=== PATIENT | female | born 1985 | race Caucasian/White ===

== ENCOUNTER 2018-05-29 17:09 | Emergency (ER) | payer OTHER ==
[2018-05-29 22:59] LABS: Urine Appearance Cloudy; Urine Blood 1+ (Negative); Urine Color Yellow; Urine Ketones Trace (Negative); Urine Protein Negative (Negative); Urine Red Blood Cell 1+(3-5/hpf) (Absent); Urine Specific Gravity 1.015 (1.010-1.030); Urine Urobilinogen Negative (Negative); Urine White Blood Cell 2+(11-20/hpf) (Absent)
[2018-05-29 23:17] LABS: ABS Basophils 0 10^3/ul (0-0.2); ABS Eosinophils 0.2 10^3/ul (0-0.6); ABS Monocytes 0.6 10^3/ul (0-0.8); ABS Neutrophils 2.9 10^3/ul (1.5-7.7); ABS Nucleated RBC 0 10^3/ul; Eosinophil % 2.8 % (0-6); Hematocrit 35 % (35-47); Mean Corpuscular HGB Conc 34 g/dl (31-36); Mean Corpuscular Hemoglobin 30 pg (27-31); Mean Corpuscular Volume 87 fL (80-97); Mean Platelet Volume 7.7 um3 (7.4-10.4); Nucleated Red Blood Cells % 0.1; Platelet Count 241 10^3/ul (150-450); Red Blood Count 4.03 10^6/ul (4.00-5.40); Red Cell Distribution Width 13 % (10.5-15); White Blood Count 5.7 10^3/ul (3.5-10.8)
--- NOTE | 2018-05-29 23:19 | ED ---
Abdominal Pain/Female - HPI Summary HPI Summary: Patient complains of right lower quadrant pain 5 days. Pain described as constant with intermittent sharp spikes. Also complains of pain with urination , some mild vaginal itching. Patient eating and drinking normally. Denies fever, cough, sore throat, CP, SOB, N/V/D, change in BM, other vaginal symptoms. Medical history migraines. Abdominal/pelvic surgical history is none. LMP one week. - History of Current Complaint Chief Complaint: EDAbdPain Stated Complaint: ABD PAIN Time Seen by Provider: 05/29/18 22:30 Hx Obtained From: Patient Onset/Duration: Gradual Onset Timing: Intermittent Episode Lasting Severity Initially: Mild Severity Currently: Moderate Pain Intensity: 5 Pain Scale Used: 0-10 Numeric Location: Discrete At: RUQ, Discrete At: RLQ Radiates: Yes Radiates to: LLQ Character: Sharp, Dull Aggravating Factor(s): Nothing Alleviating Factor(s): Nothing Associated Signs and Symptoms: Positive: Urinary Symptoms Allergies/Adverse Reactions: Allergies Allergy/AdvReac Type Severity Reaction Status Date / Time NSAIDS (Non-Steroidal Allergy Unknown Verified 05/29/18 17:20 Anti-Inflamma Reaction Details PMH/Surg Hx/FS Hx/Imm Hx Endocrine/Hematology History: Denies: Hx Anticoagulant Therapy History: Denies: Hx Dialysis Neurological History: Denies: Hx CVA Infectious Disease History: No Infectious Disease History: Denies: Traveled Outside the [place] in Last 30 Days - Social History Alcohol Use: Occasionally Substance Use Type: Reports: None Smoking Status (MU): Former Smoker Review of Systems Constitutional: Negative Eyes: Negative ENT: Negative Cardiovascular: Negative Respiratory: Negative Positive: Abdominal Pain Positive: dysuria Musculoskeletal: Negative Skin: Negative Neurological: Negative Psychological: Normal All Other Systems Reviewed And Are Negative: Yes Physical Exam - Summary Physical Exam Summary: Patient keeps stating she does not want provider to push on her stomach. When patient has to no abdominal exam herself, patient states pain in right lower quadrant radiating up to right upper quadrant. No pain with palpation of left upper or left lower quadrant or suprapubically. Triage Information Reviewed: Yes Vital Signs On Initial Exam: Initial Vitals Temp Pulse Resp BP Pulse Ox 98.2 F 66 16 105/70 99 05/29/18 17:17 05/29/18 17:17 05/29/18 17:17 05/29/18 17:17 05/29/18 17:17 Vital Signs Reviewed: Yes Appearance: Positive: Well-Appearing Skin: Positive: Warm Head/Face: Positive: Normal Head/Face Inspection Eyes: Positive: Normal Neck: Positive: Supple Respiratory/Lung Sounds: Positive: Clear to Auscultation Cardiovascular: Positive: Normal Abdomen Description: Positive: Other: Musculoskeletal: Positive: Normal Neurological: Positive: Normal Psychiatric: Positive: Normal AVPU Assessment: Alert - Oral Coma Scale Best Eye Response: 4 - Spontaneous Best Motor Response: 6 - Obeys Commands Best Verbal Response: 5 - Oriented Coma Scale Total: 15 Diagnostics - Vital Signs Vital Signs Temp Pulse Resp BP Pulse Ox 05/29/18 18:35 98.3 F 72 16 96/60 99 05/29/18 17:17 98.2 F 66 16 105/70 99 - Laboratory Lab Results: Lab Results 05/29/18 Range/Units 22:28 Urine Color Yellow Urine Appearance Cloudy Urine pH 6.0 (5-9) Ur Specific [place] 1.015 (1.010-1.030) Urine Protein Negative (Negative) Urine Ketones Trace A (Negative) Urine Blood 1+ A (Negative) Urine Nitrate Negative (Negative) Urine Bilirubin Negative (Negative) Urine Urobilinogen Negative (Negative) Ur Leukocyte Esterase Trace A (Negative) Urine WBC (Auto) 2+(11-20/hpf) A (Absent) Urine RBC (Auto) 1+(3-5/hpf) A (Absent) Ur Squamous Epith Cells Present A (Absent) Urine Bacteria Absent (Absent) Urine Glucose Negative (Negative) Result Diagrams: 05/29/18 23:06 05/29/18 23:06 Lab Statement: Any lab studies that have been ordered have been reviewed, and results considered in the medical decision making process. - CT ab/pel w PO and IV CT Interpretation: No Acute Changes CT Interpretation Completed By: Radiologist Abdominal Pain Fem Course/Dx - Course Course Of Treatment: Patient complains of right lower quadrant pain 5 days. Pain described as constant with intermittent sharp spikes. Also complains of pain with urination, some mild vaginal itching. Patient eating and drinking normally. Denies fever, cough, sore throat, CP, SOB, N/V/D, change in BM, other vaginal symptoms. Medical history migraines. Abdominal/pelvic surgical history is none. LMP one week. PE: Patient keeps stating she does not want provider to push on her stomach. When patient has to no abdominal exam herself , patient states pain in right lower quadrant radiating up to right upper quadrant. No pain with palpation of left upper or left lower quadrant or suprapubically. During initial exam Patient was advised symptoms seemed more consistent with UTI, and that one option would be to treat UTI and [id number] on right lower quadrant pain and possible appendicitis. Patient wanted to rule out appendicitis by CT now. Vital signs within normal limits and stable. Labs unremarkable. UTI. CT abdomen and pelvis with oral and IV contrast negative for acute process - Diagnoses Provider Diagnoses: UTI (urinary tract infection) Discharge - Sign-Out/Discharge Documenting (check all that apply): Patient Departure - Discharge Plan Condition: Stable Disposition: HOME Prescriptions: Sulfamethox/Trimethoprim DS* [Bactrim DS 800/160 TAB*] 1 tab PO BID 10 Days #20 tab Patient Education Materials: Urinary Tract Infection in Women (ED) Referrals: No Primary Care Phys,NOPCP [Primary Care Provider] - - Billing Disposition and Condition Condition: STABLE Disposition: Home
[2018-05-29 23:34] LABS: EGFR Non-African American 91.3 (>60)
[2018-05-30] MEDS ORDERED: Iohexol 300* (CONTRAST) 10 ML SDV IV ONE (00:55)
[2018-05-30] MEDS ORDERED: NS 0.9% 1000 ML* 1,000 ML IV ONE (01:49)
[2018-05-30] MEDS ORDERED: Sulfamethox/Trimethoprim DS 800/160* TAB PO ONE (02:45)
[2018-05-30 03:46] VITALS: BP 98/59
--- NOTE | 2018-05-30 07:53 | RAD ---
CLINICAL HISTORY: rlq pain x 5 days COMPARISON: None TECHNIQUE: Multiple contiguous axial CT scans were obtained of the abdomen and pelvis after the administration of intravenous contrast. Coronal and sagittal multiplanar reformations are submitted for review. Oral contrast was administered. Delayed images were obtained through the abdomen. FINDINGS: LUNG BASES: The lung bases are clear. LIVER: The liver is diffusely low in attenuation compared to the spleen. There are no focal hepatic parenchymal masses. BILE DUCTS: There is no intrahepatic or extrahepatic biliary dilatation. GALLBLADDER: The gallbladder is normal, without pericholecystic inflammatory change. PANCREAS: The pancreas is normal, without mass or ductal dilatation. SPLEEN: Normal in size and appearance. UPPER GI TRACT: Evaluation of the gastrointestinal tract is limited by incomplete gastric distention. The upper GI tract is unremarkable. SMALL BOWEL AND MESENTERY: The small bowel is normal in contour, course, and caliber. There is no obstruction or dilatation. COLON: The colon is normal in contour, course, caliber. There is no pericolonic inflammatory change. There is a tubular, vermiform, hollow viscus that is blind ending, and originates from the cecum, consistent with a normal appendix. There is no periappendiceal inflammatory change. This is best seen on axial images 63 through 67. ADRENALS: Normal bilaterally. KIDNEYS: The kidneys are normal in shape, size, contour, and axis. There is no hydronephrosis or nephrolithiasis. BLADDER: The bladder is incompletely distended. There is mild circumferential bladder wall thickening, though this may be artifactually accentuated by incomplete distention. PELVIC ORGANS: The uterus and adnexa are grossly normal for technique. AORTA: The aorta is normal. IVC: Unremarkable LYMPH NODES: There is no lymphadenopathy by size criteria. ABDOMINAL WALL: There is no evidence for abdominal wall hernia. BONES AND SOFT TISSUES: Unremarkable OTHER: None IMPRESSION: NORMAL APPENDIX. MILD BLADDER WALL THICKENING WHICH MAY BE AN ARTIFACT OF INCOMPLETE DISTENTION. R0
== END 2018-05-30 03:44 | disposition home or self-care (01) ==
LOC: ED 17:09
DX: N39.0 Urinary tract infection, site not specified (principal); Z88.6 Allergy status to analgesic agent; Z87.891 Personal history of nicotine dependence
CPT/HCPCS: 36415; 74177; 80053; 81003; 81015; 83605; 84702; 85025; 86140; 87086; 96360; 99283; A9270-GY; Q9967